=== PATIENT | female | born 1970 | race Caucasian/White ===

== ENCOUNTER → 2016-11-29 | Outpatient (CLI) | payer OTHER ==
--- NOTE | 2016-11-29 17:41 | DX ---
Right foot, 3 views History: Fall downstairs. Trauma, pain. Findings: Nondisplaced acute oblique fracture involving the right 5th toe proximal phalanx with sligh t comminution. No definite extension to articular surfaces. First through 4th toes appear intact. Met atarsals demonstrate no definite fracture. Tarsal bones appear intact. Plantar calcaneal spur identif ied. Impression: Nondisplaced oblique slightly comminuted right 5th toe proximal phalanx fracture. A Follow-Up Required test result notification was sent via the [facility] service, 5:38:50 PM, 11/29/2016, [facility] Message ID [id number].
--- NOTE | 2016-11-29 17:45 | DX ---
Right Ankle, Three Views History: Fall downstairs. Trauma, pain. Findings: No widening of the ankle mortise. No definite malleolar fracture. Talar dome appears intact . Plantar calcaneal spur. Lateral soft tissue swelling with a 6 mm fracture fragment from the lateral aspect of the cuboid with minimal displacement. Impressions 1. Cuboid acute fracture lateral distal corner. 2. No malleolar fracture.
--- NOTE | 2016-11-29 17:48 | DX ---
Right Tibia and Fibula, Two Views History: Trauma, pain. Findings: No acute fracture or dislocation identified. No definite fracture of the right tibia or fib katrin. No definite fibular fracture. Impressions 1. No definite acute fracture. 2. Recommend additional imaging if symptoms persist, if clinically indicated.
== END ==
LOC: BMCIMAGING 15:37
PROVIDERS: ATTEND Podiatrist Foot & Ankle Surgery
DX: S82.891A Other fracture of right lower leg, initial encounter for closed fracture (principal); W10.8XXA Fall (on) (from) other stairs and steps, initial encounter

== ENCOUNTER → 2016-12-20 | Outpatient (CLI) | payer OTHER ==
--- NOTE | 2016-12-20 16:28 | DX ---
Right Foot , 3 weightbearing views History: Follow-up cuboid fracture, T12.920Z Findings: Increasing sclerosis associated with the distal plantar lateral cuboid is consistent with a healing fracture. The cuboid- fourth and fifth metatarsal joints remain normal in width and normally aligned. The fracture of the proximal phalanx of the fifth toe remains in satisfactory alignment. Portions of the fracture line remains visible. Radiopaque callus is bridging a portion of the distal fracture. Impression: Healing is occurring.
== END ==
LOC: BMCIMAGING 15:41
PROVIDERS: ATTEND Podiatrist Foot & Ankle Surgery
DX: S99.921D Unspecified injury of right foot, subsequent encounter (principal)

== ENCOUNTER → 2017-05-04 | Outpatient (CLI) | payer OTHER | LOC: BMCIMAGING 15:32 | PROVIDERS: ATTEND Internal Medicine Rheumatology | DX: Z13.89 Encounter for screening for other disorder (principal); M19.041 Primary osteoarthritis, right hand ==